=== PATIENT | female | born 1955 ===

== ENCOUNTER 2020-01-27 13:40 | Outpatient (REF) | payer BC, SELFPAY ==
[2020-01-27 21:44] LABS: Calculated LDL 165 mg/dL (<100); Cholesterol 239 mg/dL (<200); HDL Cholesterol 52 mg/dL (40-60); Triglyceride 110 mg/dL (<150)
== END 2020-01-27 14:00 ==
LOC: NCHCN 13:40
PROVIDERS: PCP Nurse Practitioner Family; Visit Provider Registered Nurse
DX: Z00.00 Encounter for general adult medical examination without abnormal findings (principal); E78.5 Hyperlipidemia, unspecified
CPT/HCPCS: 80061